=== PATIENT | male | born 1945 | race Caucasian/White ===

== ENCOUNTER 2019-11-10 09:52 | Outpatient (CLI) | payer MEDICARE, OTHER, SELFPAY ==
[2019-11-10 10:47] LABS: Basophils Absolute Auto 0.1 K/mm3 (0.0-0.1); Basophils Percent Auto 0.7 % (0.2-1.2); Eosinophils Absolute Auto 0.4 K/mm3 (0-0.3); Eosinophils Percent Auto 4.3 % (0-4.4); Hematocrit 45.5 % (42.0-52.0); Hemoglobin 15.1 g/dL (14.0-18.0); Immature Granulocyte Absolute 0.06 K/mm3 (0.00-0.031); Immature Granulocyte Percent A 0.6 % (0-0.5); Lymphocytes Absolute Auto 3.17 K/mm3 (0.9-3.2); Lymphocytes Percent Auto 30.9 % (18.3-44.2); Mean Corpuscular HGB Conc 33.2 g/dl (32-36); Mean Corpuscular Hemoglobin 28.6 pg (26-34); Mean Corpuscular Volume 86.2 fl (80-100); Mean Platelet Volume 11.2 fl (7.4-10.4); Monocytes Absolute Auto 0.8 K/mm3 (0.1-0.6); Monocytes Percent Auto 8.1 % (2.6-8.5); Neutrophils Absolute Auto 5.7 K/mm3 (1.3-6.7); Neutrophils Percent Auto 55.4 % (45.5-73.1); Platelet Count Result 195 k/mm3 (150-375); Red Blood Count 5.28 M/mm3 (4.6-6.20); Red Cell Distribution Width 13.9 % (11.5-14.5); White Blood Count 10.3 K/mm3 (4.5-10.0)
[2019-11-10 10:55] LABS: Hemoglobin A1C 6.5 % (<5.7)
[2019-11-10 10:57] LABS: Alanine Aminotransferase 25 U/L (4-50); Albumin Level 4.7 g/dL (3.5-5.1); Alkaline Phosphatase 69 U/L (38-126); Anion Gap 9 mmol/L (8-16); Aspartate Amino Transferase 30 U/L (17-59); Bilirubin,Total 0.6 mg/dL (0.2-1.3); Blood Urea Nitrogen 20 mg/dL (9-20); Calcium 9.7 mg/dL (8.4-10.2); Carbon Dioxide 30 mmol/L (22-30); Chloride 98 mmol/L (98-107); Estimated Glomerular Filt Rate > 60; Glucose 121 mg/dL (75-110); Potassium 4.5 mmol/L (3.4-5.0); Sodium 137 mmol/L (137-145)
[2019-11-10 11:13] LABS: Creatinine Urine 126.2 mg/dL
[2019-11-10 11:34] LABS: MALB Creatinine Ratio 8.2 mg/g (0-30); Microalbumin Urine Random 10.4 mg/L (0-16.7)
== END 2019-11-10 09:53 | disposition home or self-care (01) ==
DX: E11.42 Type 2 diabetes mellitus with diabetic polyneuropathy (principal)
CPT/HCPCS: 36415; 80053; 82043; 83036; 85025

== ENCOUNTER 2020-02-07 06:56 | Outpatient (NON) | payer MEDICARE, OTHER, SELFPAY ==
[2020-02-07 23:37] LABS: SARS-CoV-2 RNA PCR Positive
== END 2020-02-07 06:57 ==
LOC: ANHCOVIDDT 06:56
DX: U07.1 COVID-19 (principal)
CPT/HCPCS: 87635; C9803; U0003

== ENCOUNTER 2021-11-22 05:37 | Emergency (ER) | payer MEDICARE, SELFPAY ==
[2021-11-22 05:46] VITALS: BP 142/99; PULSE 60; RESP 16; TEMP 36.7; O2SAT 98
--- NOTE | 2021-11-22 06:15 | ED.BACK ---
HPI - Back Pain/Injury General Chief Complaint: Back Pain/Injury Stated Complaint: Right sided sciatica pain x 2 days Time Seen by Provider: 11/22/21 05:42 History of Present Illness HPI Narrative: Patient is a 76-year-old male who presents ER with right-sided sciatica. Began yesterday. Starts in low back and radiates down his leg to his toes. Sharp/burning/needles. Worse with movement. No relief with Tylenol. Tried tizanidine an hour prior to arrival. No fevers or chills or sweats. No saddle anesthesia or urinary/fecal incontinence. Had this once many years ago. Denies any recent injury. Has not been doing increased work around the home. Related Data Allergies Allergy/AdvReac Type Severity Reaction Status Date / Time iodine Allergy Mild Unknown Verified 11/22/21 05:52 Review of Systems Review of Systems: All systems reviewed & are unremarkable except as noted in HPI and below Constitutional: Constitutional: Denies chills and Denies fever(s) Musculoskeletal: Musculoskeletal: Reports back pain, Denies arthralgias and Denies joint swelling Neurologic: Denies headache(s), Denies focal weakness and Denies numbness PMFSH Past Medical History Medical History (Updated 11/22/21 @ 06:53 by Vladimir Guzmán MD) Atrial fibrillation Depression Hypertension Kidney stones Surgical History Surgical History (Updated 11/22/21 @ 06:18 by Vladimir Guzmán MD) Aortic valve replaced History of appendectomy History of cholecystectomy Social History Social History (Updated 11/22/21 @ 06:19 by Vladimir Guzmán MD) Smoking status: Never smoker Exam Narrative: GENERAL: Uncomfortable-appearing, well-nourished, and in no acute distress. HEAD: Normocephalic, atraumatic. CHEST: Clear to auscultation. No respiratory distress. HEART: Regular rate and rhythm. Normal peripheral pulses. Back: No midline tenderness of T/L-spine. There is paraspinal muscle tenderness that reproduces patient's pain going down the leg near the L4-L5 area on the right. No left-sided paraspinal muscular pain. EXTREMITIES: Normal range of motion. No edema. SKIN: Warm, dry, no rash. NEURO: Alert and oriented x3. PSYCH: Normal mood and affect. Course Course Emergency Course: Pain went from 12/26-07/26 after Toradol and Valium. Discharged with small supply of Valium. They will take Tylenol and tizanidine at home and noted to not take tizanidine at the same time as Valium. Vital Signs Vital signs: Vital Signs Temperature 98.1 F 11/22/21 05:46 Pulse Rate 60 11/22/21 05:46 Respiratory Rate 16 11/22/21 05:46 Blood Pressure 142/99 H 11/22/21 05:46 Pulse Oximetry 98 11/22/21 05:46 Oxygen Delivery Room Air 11/22/21 05:46 Temperature 98.1 F 11/22/21 05:46 Pulse Rate 52 L 11/22/21 06:20 Respiratory Rate 16 11/22/21 06:20 Blood Pressure 119/63 11/22/21 06:20 Pulse Oximetry 96 11/22/21 06:20 Oxygen Delivery Room Air 11/22/21 05:46 Discharge Plan Discharge Clinical Impression: Sciatica Patient Disposition: Home, Self-Care Condition: Stable Instructions: Sciatica (ED) Additional Instructions: Return to the ER if you have increased pain in your back, you develop lower extremity weakness/numbness/paralysis, you have numbness or tingling in your private parts, or you are unable to control your ability to urinate/stool. Prescriptions: New diazepam [Valium] 2 mg tablet 2 mg PO BID PRN (Reason: muscle spasm) Qty: 6 0RF Follow-up/Referrals: PHYSICIAN NOT ON STAFF,NONSTAFF [Primary Care Provider] - 1 Week
[2021-11-22] MEDS: diazePAM INJ (*CRX) 10 MG/2 ML SYRINGE 2.5 MG IV PUSH (06:16)
[2021-11-22] MEDS: KETOROLAC 30 MG/ML VIAL (*BKC) IV PUSH (06:16)
[2021-11-22 06:20] VITALS: BP 119/63; PULSE 52; RESP 16; O2SAT 96
[2021-11-22 07:03] VITALS: BP 111/51; PULSE 52; RESP 20; O2SAT 95
== END 2021-11-22 07:04 | disposition home or self-care (01) ==
PROVIDERS: Emergency Provider Emergency Medicine
DX: M54.41 Lumbago with sciatica, right side (principal); I48.91 Unspecified atrial fibrillation; I10 Essential (primary) hypertension; Z87.442 Personal history of urinary calculi; Z95.2 Presence of prosthetic heart valve
CPT/HCPCS: 96374; 96375; 99284; J1885; J3360